=== PATIENT | male | born 1960 | race Caucasian/White ===

== ENCOUNTER 2020-11-21 12:15 | Emergency (ER) | payer OTHER ==
[~2020-11-21] VITALS: Ht 175.3 cm; Wt 72.6 kg
[~2020-11-21 12:15] MED LIST: AUGMENTIN 500-1 EACH PO; CLEOCIN HCL300 MG PO; MEDROLDOSEPACK PO; NOHOMEMEDICATIONS; NORCO 5-325 TA1 EACH PO; PROMETHAZINE-D120 ML PO; VENTOLIN HFA INH8 GM IH
[2020-11-21 12:37] LABS: ABSOLUTE BASOPHILS 0.2 thou/uL (0.0-0.2); ABSOLUTE EOSINOPHILS 0.3 thou/uL (0.0-0.7); ABSOLUTE LYMPHOCYTES 2.6 thou/uL (0.8-5.3); ABSOLUTE MONOCYTES 0.8 thou/uL (0.0-1.2); ABSOLUTE NEUTROPHILS 8.9 thou/uL (1.6-8.1); BASOPHILS 1.3 %; EOSINOPHILS 2.3 %; HEMATOCRIT 47.4 % (42.0-52.0); HEMOGLOBIN 16.1 gm/dL (14.0-18.0); LYMPHOCYTES 20.7 %; MCH 28.9 pg (26.0-34.0); MPV 9.1 fl. (7.2-11.1); NUCLEATED RBCS 0 /100WBC; PLATELET COUNT* 246 thou/uL (150-400); POLYS 69.7 %; RBC 5.58 mil/uL (4.50-6.00); RDW-CV 13.4 % (10.5-14.5); WBC 12.7 thou/uL (4.0-11.0)
[2020-11-21 12:48] LABS: CALCIUM 8.9 mg/dL (8.5-10.1); CREATININE 1.1 mg/dL (0.6-1.3); POTASSIUM 3.7 mmol/L (3.5-5.1)
[2020-11-21 12:50] LABS: PROTIME 10.3 Seconds (9.20-11.50)
[2020-11-21 12:53] LABS: ALBUMIN 3.8 g/dL (3.4-5.0); TOTAL BILIRUBIN 0.7 mg/dL (<0.1-1.0); TOTAL PROTEIN 7.6 g/dL (6.4-8.2)
[2020-11-21 14:44] VITALS: BP 132/55
--- NOTE | 2020-11-22 12:20 | EKG ---
[place] [address] ELECTROCARDIOGRAM REPORT Name: ESPINOZA PERRY Room: [facility]#: [id number] Admission: 11/21/20 Attend Phys: Discharge: 11/21/20 Date of : 56 Date of Service: 11/21/20 1238 Report #: [id number] THIS REPORT FOR: //name// [facility] ED Test Date: 2020-11-21 Test Time: 12:38:29 Pat Name: ESPINOZA PERRY Department: Room: Gender: Emg Technician: [facility] : 1960 Requested By: Tavon Sheridan Order Number: [id number] MD: Florian Hudson Measurements Intervals [place] Rate: 65 P: 48 [place]: 162 QRS: 56 QRSD: 79 T: 50 QT: 383 QTc: 399 Interpretive Statements Sinus rhythm No previous ECG available for comparison Electronically Signed On 11-22-2020 12:20:29 DERRICK [employer]AT [employer]EVERMAN by Florian Hudson [email or web address] <ELECTRONICALLY SIGNED> By: Florian Hudson MD, [facility] 11/22/20 1220 1238 1238 Florian Hudson MD, FACC /EPI
== END 2020-11-21 14:46 | disposition home or self-care (01) ==
LOC: M.ERS 12:15
PROVIDERS: Family Medicine
DX: T18.128A Food in esophagus causing other injury, initial encounter (principal); Z20.822 Contact with and (suspected) exposure to COVID-19; Z86.14 Personal history of Methicillin resistant Staphylococcus aureus infection; X58.XXXA Exposure to other specified factors, initial encounter; Y93.89 Activity, other specified; Y92.89 Other specified places as the place of occurrence of the external cause; Y99.8 Other external cause status